=== PATIENT | male | born 1990 | race Hispanic/Latino ===

== ENCOUNTER 2017-10-18 09:05 | Emergency (ER) | payer SELFPAY ==
[2017-10-18] MEDS ORDERED: Lidocaine 1% w/Epinephrine 1:100K 20 ML VIAL ONE (09:18)
== END 2017-10-18 09:45 | disposition home or self-care (01) ==
LOC: ERS 09:05
DX: L02.11 Cutaneous abscess of neck (principal)
CPT/HCPCS: 10060; J2001

== ENCOUNTER 2017-10-19 10:20 | Emergency (ER) | payer SELFPAY | END 2017-10-19 10:52 | disposition home or self-care (01) | LOC: ERS 10:20 | DX: L02.11 Cutaneous abscess of neck (principal) | CPT/HCPCS: 99282 ==